=== PATIENT | female | born 1985 | race Two or more races ===

== ENCOUNTER 2022-06-09 09:03 | Outpatient (CLI) | payer OTHER | END 2022-06-09 09:14 | disposition home or self-care (01) | LOC: RX STUDY 09:03 | PROVIDERS: ATTEND Obstetrics & Gynecology Gynecology | DX: N97.1 Female infertility of tubal origin (principal) ==

== ENCOUNTER 2023-11-08 12:09 | Emergency (ER) | payer OTHER ==
[~2023-11-08] VITALS: Ht 162.6 cm; Wt 61.7 kg
[2023-11-08] MEDS ORDERED: SYNTHROID50 MCG PO (12:48)
[2023-11-08] MEDS ORDERED: MEPERIDINE HCL/PF 25 MG/ML VIAL IM ONE (13:15)
[2023-11-08 13:33] LABS: HEMATOCRIT 38.1 % (36.0-45.00); MEAN CELL VOLUME 84.8 fL (80.00-100.00); MEAN CORPUSCULAR HGB CONC 34.2 g/dl (32.0-36.0); PLATELET COUNT 247 K/uL (150-450); RED BLOOD COUNT 4.49 M/uL (4.00-6.00); RED CELL DISTRIBUTION WIDTH 14.5 % (11.5-14.5)
[2023-11-08 15:24] LABS: PH,URINE 5.5 (5.0-8.0); URINE APPEARANCE Clear; URINE BILIRRUBIN Negative (NEGATIVE); URINE BLOOD Trace; URINE COLOR Yellow; URINE GLUCOSE Negative (NEGATIVE); URINE KETONE Negative (NEGATIVE); URINE LEUKOCYTE Negative; URINE NITRATE Negative; URINE PROTEIN Negative (NEGATIVE); URINE UROBILINOGEN 0.2 E.U./dl
[2023-11-08 15:29] LABS: URINE RBC 11.1 uL (0.0-20.8); URINE WBC 8.6 uL (0.0-23.2)
[2023-11-08 15:37] LABS: URINE CAST 0.15 uL (0.0-1.40)
[2023-11-08] MEDS ORDERED: HORIZANT300 MG PO (15:46)
== END 2023-11-08 16:09 | disposition home or self-care (01) ==
LOC: ER 12:10
PROVIDERS: General Practice
DX: O26.892 Other specified pregnancy related conditions, second trimester (principal); Z3A.15 15 weeks gestation of pregnancy; E03.8 Other specified hypothyroidism; R42 Dizziness and giddiness

== ENCOUNTER 2024-02-22 13:20 | Inpatient (IN) | payer OTHER ==
[~2024-02-22] VITALS: Ht 162.6 cm; Wt 69.9 kg
[~2024-02-22 13:20] MED LIST: HORIZANT300 MG PO; SYNTHROID50 MCG PO
[2024-02-22 14:10] VITALS: BP 114/79
[2024-02-22] MEDS ORDERED: AMPICILLIN SODIUM 2,000 MG VIAL IV ONE (14:45)
[2024-02-22] MEDS ORDERED: MAGNESIUM SULFATE IN WATER 0.04 GM/ML IV.SOLN IV SCH (14:45)
[2024-02-22] MEDS ORDERED: BETAMETHASONE ACETATE,SOD PHOS 30 MG/5 ML ML IM ONE (14:45)
[2024-02-22] MEDS ORDERED: RINGERS SOLUTION,LACTATED 1,000 ML IV SCH (14:45)
[2024-02-22] MEDS ORDERED: MAGNESIUM SULFATE IN WATER 4 GM/100 ML PIGGYBACK IV ONE (14:45)
[2024-02-22 14:49] LABS: HEMATOCRIT 35.9 % (36.0-45.00); HEMOGLOBIN 12.2 g/dL (12.0-15.00); MEAN CELL VOLUME 79.1 fL (80.00-100.00); MEAN CORPUSCULAR HEMOGLOBIN 26.8 pg (27.00-32.0); MEAN CORPUSCULAR HGB CONC 33.9 g/dl (32.0-36.0); PLATELET COUNT 253 K/uL (150-450); RED BLOOD COUNT 4.54 M/uL (4.00-6.00)
[2024-02-22 14:56] LABS: URINE APPEARANCE Clear; URINE BACTERIA 1539.7 uL (0.0-1933); URINE BILIRRUBIN Negative (NEGATIVE); URINE BLOOD Negative; URINE COLOR Yellow; URINE EPITHELIAL CELLS 51.6 uL (0.0-38.8); URINE GLUCOSE Negative (NEGATIVE); URINE KETONE 15 (NEGATIVE); URINE LEUKOCYTE Small; URINE NITRATE Negative; URINE PROTEIN Trace (NEGATIVE); URINE RBC 29.3 uL (0.0-20.8); URINE UROBILINOGEN 0.2 E.U./dl; URINE WBC 26.7 uL (0.0-23.2)
[2024-02-22] MEDS ORDERED: MAGNESIUM SULFATE IN WATER 500 ML IV SCH (15:00)
[2024-02-22 15:04] LABS: INR 0.95; PARTIAL THROMBOPLASTIN TIME 25.1 SECONDS (22.0-34.0); PROTHROMBIN TIME 10.4 SECONDS (9.0-11.5)
[2024-02-22 15:19] LABS: ALBUMIN 2.8 gm/dL (3.4-5.0); BILIRUBIN TOTAL 0.35 mg/dL (0.3-1.2); CALCIUM 8.7 mg/dL (8.5-10.1); CREATININE SERUM 0.43 mg/dL (0.55-1.02); GFR 166.14; GLOBULINA 4.2 G/DL (2.4-3.5); POTASSIUM 3.55 mEq/L (3.5-5.1)
[2024-02-22 15:47] VITALS: BP 117/74
[2024-02-22 19:26] VITALS: BP 123/78
[2024-02-22] MEDS ORDERED: AMPICILLIN SODIUM 1,000 MG VIAL IV SCH (20:00)
[2024-02-22 23:31] VITALS: BP 116/76
[2024-02-23 04:14] VITALS: BP 109/73
[2024-02-23] MEDS ORDERED: LEVOTHYROXINE SODIUM 75 MCG TABLET PO SCH (06:00)
[2024-02-23 06:12] VITALS: BP 105/58; O2SAT 97
[2024-02-23] MEDS ORDERED: PNV,CALCIUM 72/IRON/FOLIC ACID 1 TAB TABLET PO SCH (09:00)
[2024-02-23 09:36] LABS: INR < 0.93; PARTIAL THROMBOPLASTIN TIME 24.1 SECONDS (22.0-34.0); PROTHROMBIN TIME 9.8 SECONDS (9.0-11.5)
[2024-02-23 09:41] LABS: FIBRINOGEN 657 mg/dL (187.0-446.0)
[2024-02-23 11:57] VITALS: BP 118/74; O2SAT 98
[2024-02-23] MEDS ORDERED: BETAMETHASONE ACETATE,SOD PHOS 30 MG/5 ML ML IM ONE (14:45)
[2024-02-23 15:28] VITALS: BP 101/60
[2024-02-23 23:22] VITALS: BP 113/72
[2024-02-24 04:12] VITALS: BP 109/63
[2024-02-24 06:17] VITALS: BP 111/64; O2SAT 98
[2024-02-24] MEDS ORDERED: ENOXAPARIN SODIUM 40 MG/0.4 ML SYRINGE SUBCUTANEO SCH (09:00)
[2024-02-24 12:36] VITALS: BP 106/63; BP 122/75
[2024-02-24 15:37] VITALS: BP 119/73
[2024-02-25 00:33] VITALS: BP 97/55
[2024-02-25 08:56] VITALS: BP 109/67
[2024-02-25] MEDS ORDERED: NIFEDIPINE 30 MG TAB.SA.OSM PO SCH (09:00)
[2024-02-25 15:53] VITALS: BP 114/71
[2024-02-26] VITALS: BP 112/67
[2024-02-26 08:54] VITALS: BP 107/65
[2024-02-26] MEDS ORDERED: LACTOBACILLUS ACIDOPHILUS 1 CAP CAP PO SCH (09:00)
[2024-02-26 16:01] VITALS: BP 119/70
[2024-02-27 00:02] VITALS: BP 109/60
[2024-02-27 08:00] VITALS: BP 112/72
[2024-02-27 16:00] VITALS: BP 111/69
[2024-02-28 02:10] VITALS: BP 118/75
[2024-02-28 08:26] VITALS: BP 116/73
[2024-02-28] MEDS ORDERED: MAGNESIUM SULFATE IN WATER 500 ML IV SCH (13:30)
[2024-02-28] MEDS ORDERED: MAGNESIUM SULFATE IN WATER 100 ML IV ONE (13:30)
[2024-02-28 14:46] VITALS: BP 117/73
[2024-02-28 15:14] VITALS: BP 111/66
[2024-02-28 20:06] VITALS: BP 125/78
[2024-02-28 23:24] VITALS: BP 124/69
[2024-02-29 03:33] VITALS: BP 118/66
[2024-02-29 06:15] VITALS: BP 116/76; O2SAT 97
[2024-02-29 06:30] VITALS: BP 116/76
[2024-02-29 11:08] VITALS: BP 121/74
[2024-02-29] MEDS ORDERED: VITAMINA D PO SCH (12:00)
[2024-02-29 15:46] VITALS: BP 109/71
[2024-02-29 20:00] VITALS: BP 108/71
[2024-03-01 00:12] VITALS: BP 130/80
[2024-03-01 04:45] VITALS: BP 110/69
[2024-03-01 06:14] VITALS: BP 120/75; O2SAT 97
[2024-03-01 12:48] VITALS: BP 124/71
[2024-03-01 16:03] VITALS: BP 117/65
[2024-03-02 01:01] VITALS: BP 124/70
[2024-03-02] MEDS ORDERED: TERBUTALINE SULFATE 1 MG/ML AMPUL SUBCUTANEO NR (08:15)
[2024-03-02 08:45] VITALS: BP 117/73
[2024-03-02 14:36] VITALS: BP 117/74
[2024-03-02 15:29] VITALS: BP 114/68
[2024-03-03 00:25] VITALS: BP 125/74
[2024-03-03 10:55] VITALS: BP 128/80
[2024-03-03 16:00] VITALS: BP 134/74
[2024-03-03] MEDS ORDERED: NIFEDIPINE 30 MG TAB.SA.OSM PO SCH (21:00)
[2024-03-04 01:17] VITALS: BP 113/65
[2024-03-04 08:00] VITALS: BP 120/76
[2024-03-04 16:00] VITALS: BP 130/79
[2024-03-05 01:28] VITALS: BP 120/63
[2024-03-05] MEDS ORDERED: PATIENTS OWN MEDICATION (MEDICAMENTO EN PISO) PO SCH (06:00)
[2024-03-05 08:47] VITALS: BP 120/76
[2024-03-05 15:42] VITALS: BP 119/74
[2024-03-06 00:53] VITALS: BP 109/69
[2024-03-06 08:06] VITALS: BP 125/79
[2024-03-06 15:10] VITALS: BP 110/73
[2024-03-07 08:19] VITALS: BP 113/73
[2024-03-07 16:29] VITALS: BP 135/84
[2024-03-07 23:42] VITALS: BP 114/71
[2024-03-08 07:35] VITALS: BP 117/77
== END 2024-03-08 09:44 | disposition home or self-care (01) | DRG 832 ==
LOC: LDR 13:20 → OB/GYN 02-24 07:36
PROVIDERS: ADMIT Obstetrics & Gynecology Gynecology; ATTEND Obstetrics & Gynecology Gynecology
PROC: 4A1HXCZ Monitoring of Products of Conception, Cardiac Rate, External Approach (ICD-10-PCS; principal; 2024-02-22)
PROC: BU4CZZZ Ultrasonography of Uterus and Ovaries (ICD-10-PCS; 2024-02-27)
PROC: BY4FZZZ Ultrasonography of Third Trimester, Single Fetus (ICD-10-PCS; 2024-03-03)
PROC: BU4CZZZ Ultrasonography of Uterus and Ovaries (ICD-10-PCS; 2024-03-03)
DX: O26.873 Cervical shortening, third trimester (principal); O47.03 False labor before 37 completed weeks of gestation, third trimester; O26.843 Uterine size-date discrepancy, third trimester; O36.8130 Decreased fetal movements, third trimester, not applicable or unspecified; O26.893 Other specified pregnancy related conditions, third trimester; O99.283 Endocrine, nutritional and metabolic diseases complicating pregnancy, third trimester; R10.2 Pelvic and perineal pain; Z3A.30 30 weeks gestation of pregnancy; Z20.822 Contact with and (suspected) exposure to COVID-19; E03.9 Hypothyroidism, unspecified

== ENCOUNTER 2024-04-15 12:15 | Inpatient (IN) | payer OTHER ==
[~2024-04-15] VITALS: Ht 162.6 cm; Wt 72.6 kg
[2024-04-20] VITALS (9 sets, daily range): BP systolic 112–142; BP diastolic 65–85
[2024-04-20] MEDS ORDERED: OXYTOCIN 500 ML IV ONE (07:30)
[2024-04-20] MEDS ORDERED: PRENATAL TABLE1 EAC4 PO (07:45)
[2024-04-20] MEDS ORDERED: SYNTHROID75 MCG PO (07:45)
[2024-04-20] MEDS ORDERED: VITAMIN D310 MCG/1 M PO (07:46)
[2024-04-20 09:24] LABS: HEMATOCRIT 35.5 % (36.0-45.00); HEMOGLOBIN 11.6 g/dL (12.0-15.00); MEAN CELL VOLUME 77.8 fL (80.00-100.00); MEAN CORPUSCULAR HEMOGLOBIN 25.4 pg (27.00-32.0); MEAN CORPUSCULAR HGB CONC 32.6 g/dl (32.0-36.0); PLATELET COUNT 244 K/uL (150-450); RED BLOOD COUNT 4.56 M/uL (4.00-6.00); RED CELL DISTRIBUTION WIDTH 17.1 % (11.5-14.5)
[2024-04-20 09:41] LABS: INR < 0.93; PARTIAL THROMBOPLASTIN TIME 24.9 SECONDS (22.0-34.0)
[2024-04-20 10:31] LABS: ALBUMIN 2.6 gm/dL (3.4-5.0); BILIRUBIN TOTAL 0.33 mg/dL (0.3-1.2); CALCIUM 8.7 mg/dL (8.5-10.1); CREATININE SERUM 0.47 mg/dL (0.55-1.02); GFR 149.94; GLOBULINA 3.9 G/DL (2.4-3.5); POTASSIUM 3.54 mEq/L (3.5-5.1); TOTAL PROTEIN 6.5 gm/dL (6.4-8.2)
[2024-04-20] MEDS ORDERED: ERYTHROMYCIN BASE OPHT 1GM EACH TUBE OP ONE (11:31)
[2024-04-20] MEDS ORDERED: LIDOCAINE HCL 1% 10ML VIAL ONE (11:32)
[2024-04-20] MEDS ORDERED: OXYTOCIN 20 UNITS/1000ML RL PIGGYBAG IV ONE (11:32)
[2024-04-20] MEDS ORDERED: CHLORHEXIDINE GLUCONATE 120 ML BOTTLE TOP ONE (11:32)
[2024-04-20] MEDS ORDERED: IBUprofen 400 MG TABLET PO PRN (14:00)
[2024-04-20] MEDS ORDERED: OXYTOCIN 1,000 ML IV SCH (14:00)
[2024-04-20] MEDS ORDERED: OxyCODONE HCL/APAP UD (PERCOCET) PO PRN (14:00)
[2024-04-21 08:00] VITALS: BP 135/78
[2024-04-21 16:53] VITALS: BP 115/74
[2024-04-22 00:50] VITALS: BP 122/80
[2024-04-22 08:26] VITALS: BP 129/76
== END 2024-04-22 16:23 | disposition home or self-care (01) | DRG 807 ==
LOC: LDR 04-20 06:02 → OB/GYN 04-20 17:54 → LDR 04-29 12:15
PROVIDERS: ADMIT Obstetrics & Gynecology; ATTEND Obstetrics & Gynecology
PROC: 10E0XZZ Delivery of Products of Conception, External Approach (ICD-10-PCS; principal; 2024-04-20)
PROC: 0UQG7ZZ Repair Vagina, Via Natural or Artificial Opening (ICD-10-PCS; 2024-04-20)
PROC: 4A1HXCZ Monitoring of Products of Conception, Cardiac Rate, External Approach (ICD-10-PCS; 2024-04-20)
DX: O71.4 Obstetric high vaginal laceration alone (principal); Z37.0 Single live birth; Z3A.38 38 weeks gestation of pregnancy